=== PATIENT | female | born 1990 ===

== ENCOUNTER 2019-05-01 17:04 | Inpatient (IN) | payer MEDICAID ==
[2019-05-01] MEDS ORDERED: LACTATED RINGERS 1,000 ML ONE (18:08)
[2019-05-01 19:30] LABS: Hematocrit 35.5 % (30.3-42.9); Hemoglobin 11.9 gm/dl (10.1-14.3); Mean Corpuscular HGB Conc 34 % (30-34); Mean Corpuscular Volume 89 fl (79-97); Platelet Count 211 K/mm3 (140-440); Red Blood Count 4.01 M/mm3 (3.65-5.03); Red Cell Distribution Width 14.7 % (13.2-15.2)
--- NOTE | 2019-05-01 19:53 | History and Physical Report ---
<MARTIN ZAMORA - Last Filed: 05/02/19 20:11> History of Present Illness Date of admission: 05/01/19 17:04 Medications and Allergies Allergies Allergy/AdvReac Type Severity Reaction Status Date / Time No Known Allergies Allergy Verified 05/01/19 20:00 Home Medications Medication Instructions Recorded Confirmed Last Taken Type Docusate Sodium [Colace] 100 mg PO BID PRN #60 capsule 05/04/19 Unknown Rx Ferrous Sulfate [Feosol 325 MG tab] 325 mg PO BID #60 tablet 05/04/19 Unknown Rx Active Meds: Active Medications Acetaminophen (Tylenol) 650 mg PO Q4H PRN PRN Reason: Pain MILD(1-3)/Fever >100.5/PATEL Bisacodyl (Dulcolax) 10 mg [place] BID PRN PRN Reason: Constipation Diphenhydramine HCl (Benadryl) 25 mg PO Q6H PRN PRN Reason: Itching Diphtheria/Tetanus/Acell Pertussis (Boostrix) 0.5 ml IM .ONCE ONE Stop: 05/03/19 19:54 Ibuprofen (Ibuprofen) 600 mg PO Q6H MELL Magnesium Hydroxide (Milk Of Magnesia) 30 ml PO HS PRN PRN Reason: Constipation Measles/Mumps/Rubella Vaccine Live (M-M-R Ii Vaccine) 0.5 ml SUB-Q .ONCE ONE Stop: 05/03/19 19:54 Methylergonovine Maleate (Methergine) 0.2 mg PO Q8HR MELL Stop: 05/03/19 06:01 Multi-Ingredient Ointment (Lansinoh) 1 applic TP PRN PRN PRN Reason: Sore Nipples Ondansetron HCl (Zofran) 4 mg IV Q8H PRN PRN Reason: Nausea And Vomiting Promethazine HCl (Phenergan) 25 mg PO Q6H PRN PRN Reason: Nausea And Vomiting Sodium Chloride (Sodium Chloride Flush Syringe 10 Ml) 10 ml IV PRN NR Witch Ivana/Glycerin (Tucks Pad) 1 each TP PRN PRN PRN Reason: Hemorrhoid/cleansing/soothing - Vital Signs Vital signs: Vital Signs Pulse Pulse Ox 79 97 05/01/19 17:30 05/01/19 17:30 Temp Pulse Resp BP Pulse Ox 100.1 F H 138 H 20 99/58 100 09/26/19 17:45 05/02/19 17:45 05/02/19 17:45 05/02/19 17:45 05/02/19 17:45 Results Result Diagrams: 05/01/19 18:30 All other labs normal. GBS Positive HBsAg Screen Negative Negative *1 RPR Non Reactive Non Reactive *2 Rubella Antibodies, IgG 3.39 index Immune >0.99 *3 Non-immune <0.90 Equivocal 0.90 - 0.99 Immune >0.99 ABO Grouping A *4 Rh Factor Positive *5 Please note: Prior records for this patient's ABO / Rh type are not available for additional verification. Antibody Screen Negative Negative *6 WBC [H] 11.5 x10E3/uL 3.4-10.8 *7 RBC 3.84 x10E6/uL 3.77-5.28 *8 Hemoglobin [L] 10.0 g/dL 11.1-15.9 *9 Hematocrit [L] 31.1 % 34.0-46.6 *10 MCV 81 fL 79-97 *11 MCH [L] 26.0 pg 26.6-33.0 *12 MCHC 32.2 g/dL 31.5-35.7 *13 RDW [H] 19.2 % 12.3-15.4 *14 Platelets [H] 394 x10E3/uL 150-379 *15 Neutrophils 70 % Not Estab. *16 Lymphs 20 % Not Estab. *17 Monocytes 4 % Not Estab. *18 Eos 6 % Not Estab. *19 Basos 0 % Not Estab. *20 ! Immature Cells <No Reported Value> *21 Neutrophils (Absolute) [H] 8.1 x10E3/uL 1.4-7.0 *22 Lymphs (Absolute) 2.3 x10E3/uL 0.7-3.1 *23 Monocytes(Absolute) 0.5 x10E3/uL 0.1-0.9 *24 Eos (Absolute) [H] 0.7 x10E3/uL 0.0-0.4 *25 Baso (Absolute) 0.0 x10E3/uL 0.0-0.2 *26 ! Immature Granulocytes <No Reported Value> *27 ! Immature Grans (Abs) <No Reported Value> *28 ! NRBC <No Reported Value> *29 Hematology Comments: Note: *30 Manual differential was performed. Tests: (2) AFP Tetra ([id number]) ! Results Report *31 ! Test Results: *Screen Negative* *32 ! Gest. Age on Collection Date 16.4 WEEKS *33 ! Gestat. Age Based On Ultrasound *34 16.4 on 11/21/2018 ! Maternal [age] ANA 30[age]8 yr *35 ! Race Other *36 ! Weight 104 lbs *37 ! Insulin Dep Diabetes No *38 ! Multiple Gestation No *39 ! AFP Value 43.5 ng/mL *40 ! AFP MoM 1.00 *41 ! hCG Value 05462 mIU/mL *42 ! hCG MoM 0.71 *43 ! uE3 Value 1.53 ng/mL *44 ! uE3 MoM 1.52 *45 ! LIZABETH Value 228.24 pg/mL *46 ! LIZABETH MoM 1.06 *47 ! [place]BR [place] 1 [place] [address] *48 ! DSR (Second Trimester) 1 IN 6451 *49 ! DSR (By Age) 1 IN 630 *50 ! T18 Risk Not increased *51 ! T18 (By Age) 1:2456 *52 ! Interpretation NL42 *53 Interpretation: Screen Negative This result is screen negative for OSB, Down Syndrome and Trisomy 18. The AFP MoM and patient specific risks calculated are based on the gestational age and the clinical information provided. This test can identify up to 80% of open neural tube defects. Closed neural tube defects and some open defects may not be detected by this test. The combination of maternal age, AFP, hCG, uE3, and LIZABETH identifies 75-80% of Down Syndrome. The combination of maternal age, AFP, hCG and uE3 identifies 60% of Trisomy 18 pregnancies. The [place] [employer] recommends amniocentesis be offered to women age 35 and older. Recalculations are not recommended when gestational dating by LMP and ultrasound are within 10 days. ! Comments: [facility] *54 Katy Cheng, Ph.D., [facility] Principal Genetics [employer] Analyst References: Available Upon Request. Multiples Of Median Cutoffs Abbreviation Definitions For AFP Elevations IDD- Insulin Dep Diabetes Tyler 2.5 Black 2.8 OSBR- Open Spina Bifida IDD 2.0 Twins 4.5 Risk DSR Cutoff 1:270 DSR- Down Syndrome Risk T18 Cutoff 1:100 T18- Trisomy 18 Down Syndrome and Trisomy 18 screening are considered Investigational For further inquiries contact [facility] at [phone]. Tests: (3) HB Solu + Rflx [facility] ([id number]) Hemoglobin (Hgb) Solubility Negative Negative *55 Tests: (4) Panel [id number] ([id number]) HIV Screen 4th Generation wRfx Non Reactive Non Reactive *56 Tests: (5) Urine Culture, Routine ([id number]) Urine Culture, Routine Final report *57 Tests: (6) Result ([id number]) ! Result 1 No growth *58 Assessment and Plan Pt sent by [facility] for IOL due to oligo and IUGR GBS + All orders in EMR - Patient Problems (1) Group B streptococcal carriage complicating Onset Date: ~05/01/19 Status: Acute Plan to address problem: ampicillin per protocol for tx of +GBS <JANET VELOZ - Last Filed: 05/06/19 17:16> History of Present Illness Date of examination: 05/01/19 Date of admission: 05/01/19 17:04 History of present illness: Admission for induction per perinatalogist Menstrual History Regularity: regular Duration: 5 LMP: 07/29/2018 LMP reliability: definite LMP character: normal test type: urine test Date: 10/24/2018 BC at conception: none Planned ? yes EDC Calculations LMP: 05/05/2019 EDC Confirmation: 05/05/2019 Past History : 1 Term Births: 0 Premature Births: 0 Living Children: 0 Para: 0 Mult. Births: 0 Prev : 0 Prev. attempt? 0 Aborta: 0 Elect. Ab: 0 Spont. 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 of genital herpes: no Partner hx. of genital herpes: no Rash, Viral, or Febrile illness since last LMP? no Varicella/Chicken Pox Status: Immunized TB Risk: no Infection History Comments: HSV 1 Genetic History Congenital Heart Defect: Mom: no Dad: no Isreal Disease: Mom: no Dad: no Thalassemia Mom: no Dad: no Neural Tube Defect Mom: no Dad: no Down's Syndrome Mom: no Dad: no Rickey-Sachs Mom: no Dad: no Sickle Cell Disease/Trait Mom: no Dad: no Hemophilia Mom: no Dad: no Muscular Dystrophy Mom: no Dad: no Cystic Fibrosis Mom: no Dad: no Granite Chorea Mom: no Dad: no Mental Retardation Mom: no Dad: no Fragile X Mom: no Dad: no Other Genetic/Chromosomal Disorder Mom: no Dad: no Child w/other defect Mom: no Dad: no Enviromental Exposures Enviromental Exposures Reviewed Xray Exposure: no Medication, drug, or alcohol use since LMP: no Chemical/Other Exposure: no Exposure to Cat Liter: no Hx of Parvovirus (Fifth Disease): no Occupational Exposure to Children: none Current Allergies (reviewed today): No known allergies Past History Past Medical History: other (SEE HPI) Past Surgical History: other (SEE HPI) 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) Family/Genetic History: other (SEE HPI) Social history: , lives with family, full code, other (SEE HPI) - Obstetrical History Expected Date of Delivery: 05/05/19 Actual Gestation: 40 Week(s) 1 Day(s) : 1 Para: 0 Hx # Term Pregnancies: 0 Number of Pregnancies: 0 Spontaneous Abortions: 0 Induced : 0 Number of Living Children: 0 - Vital Signs Vital signs: Vital Signs Pulse Pulse Ox 79 97 05/01/19 17:30 05/01/19 17:30 Temp Pulse Resp BP Pulse Ox 97.8 F 86 14 120/74 98 05/01/19 17:32 05/01/19 19:44 05/01/19 17:32 05/01/19 18:53 05/01/19 19:44 Results Result Diagrams: 05/04/19 08:34 All other labs normal. Assessment and Plan - Patient Problems (1) Oligohydramnios in tyler in third trimester Status: Acute Plan to address problem: Diagnosis with ultrasound done at perinatologist office today. (2) 39 weeks gestation of Status: Acute (3) Intrauterine growth retardation Status: Acute Plan to address problem: Patient worsening growth retardation discussed with patient indication for induction with IUGR and oligohydramnios. Serous induction protocol explained and all questions answered (4) Group B streptococcal carriage complicating Onset Date: ~05/01/19 Status: Acute
[2019-05-01] MEDS ORDERED: ePHEDrine SULFATE 50 MG/1 ML INJ IV PRN (19:56)
[2019-05-01] MEDS ORDERED: DINOPROSTONE 10 MG VAG SUPP VG ONE (19:56)
[2019-05-01] MEDS ORDERED: BUTORPHANOL 2 MG/1 ML INJ IV PRN (19:56)
[2019-05-01] MEDS ORDERED: TERBUTALINE 1 MG/1 ML INJ SUB-Q PRN (19:56)
[2019-05-01] MEDS ORDERED: TERBUTALINE 1 MG/1 ML INJ IVP PRN (19:56)
[2019-05-01] MEDS ORDERED: LIDOCAINE (2%) 20 MG/1 ML VIAL 20 ML MDV INFILTRATI ONE (19:56)
[2019-05-01] MEDS ORDERED: PROMETHAZINE 25 MG TAB PO PRN (19:56)
[2019-05-01] MEDS ORDERED: OXYTOCIN 20 UNIT/1000ML DRIP 20 UNITS/1,000 ML BAG IV SCH (20:00)
[2019-05-01] MEDS ORDERED: AMPICILLIN/NS 2 GM/100 ML 2 GM/100 ML BAG IV ONE (23:33)
[2019-05-02] MEDS ORDERED: AMPICILLIN/NS 1 GM/50 ML 1 GM/50 ML BAG IV SCH (01:00)
[2019-05-02] MEDS: LACTATED RINGERS 1,000 ML IV SCH ×2 (02:01→10:57)
[2019-05-02] MEDS ORDERED: OXYTOCIN DRIP 30 UNITS/500 ML BAG IV SCH (10:00)
[2019-05-02] MEDS ORDERED: LIDOCAINE (2%) 20 MG/1 ML VIAL 20 ML MDV INFILTRATI ONE (14:02)
--- NOTE | 2019-05-02 14:26 | Progress Note ---
Assessment and Plan anticipate delivery pt declines epidural Subjective - Subjective Date of service: 05/02/19 (pt tolerating labor well) Principal diagnosis: IUP@39weeks IOL due to Oligo and IUGR Patient reports: loss of fluid, movement normal Objective - Vital Signs Vital Signs: Vital Signs - 12hr 05/02/19 05/02/19 05/02/19 02:22 02:27 02:33 Temperature Pulse Rate 90 100 H 96 H Respiratory Rate Blood Pressure O2 Sat by Pulse 95 95 94 Oximetry 05/02/19 05/02/19 05/02/19 02:38 02:42 02:43 Temperature Pulse Rate 79 92 H 91 H Respiratory Rate Blood Pressure 114/60 O2 Sat by Pulse 96 94 94 Oximetry 05/02/19 05/02/19 05/02/19 02:47 02:48 02:53 Temperature Pulse Rate 94 H 98 H 88 Respiratory Rate Blood Pressure O2 Sat by Pulse 94 94 95 Oximetry 05/02/19 05/02/19 05/02/19 02:58 03:03 03:08 Temperature Pulse Rate 88 94 H 82 Respiratory Rate Blood Pressure O2 Sat by Pulse 95 96 96 Oximetry 05/02/19 05/02/19 05/02/19 03:13 03:18 03:23 Temperature Pulse Rate 89 95 H 78 Respiratory Rate Blood Pressure O2 Sat by Pulse 97 96 97 Oximetry 05/02/19 05/02/19 05/02/19 03:28 03:33 03:38 Temperature Pulse Rate 87 75 77 Respiratory Rate Blood Pressure O2 Sat by Pulse 98 97 95 Oximetry 05/02/19 05/02/19 05/02/19 03:42 03:43 03:44 Temperature Pulse Rate 105 H 84 84 Respiratory Rate Blood Pressure 130/60 O2 Sat by Pulse 94 97 Oximetry 05/02/19 05/02/19 05/02/19 03:48 03:53 03:55 Temperature Pulse Rate 95 H 88 91 H Respiratory Rate Blood Pressure O2 Sat by Pulse 97 95 94 Oximetry 05/02/19 05/02/19 05/02/19 03:58 04:03 04:08 Temperature Pulse Rate 85 85 87 Respiratory Rate Blood Pressure O2 Sat by Pulse 95 95 96 Oximetry 05/02/19 05/02/19 05/02/19 04:13 04:18 04:23 Temperature Pulse Rate 88 97 H 79 Respiratory Rate Blood Pressure O2 Sat by Pulse 97 96 97 Oximetry 05/02/19 05/02/19 05/02/19 04:28 04:41 04:43 Temperature Pulse Rate 93 H 88 77 Respiratory Rate Blood Pressure 116/59 O2 Sat by Pulse 97 97 Oximetry 05/02/19 05/02/19 05/02/19 04:46 04:51 04:56 Temperature Pulse Rate 86 78 93 H Respiratory Rate Blood Pressure O2 Sat by Pulse 96 97 96 Oximetry 05/02/19 05/02/19 05/02/19 05:01 05:06 05:11 Temperature Pulse Rate 97 H 90 Respiratory Rate Blood Pressure O2 Sat by Pulse 97 98 96 Oximetry 05/02/19 05/02/19 05/02/19 05:16 05:21 05:26 Temperature Pulse Rate 77 81 85 Respiratory Rate Blood Pressure O2 Sat by Pulse 98 97 97 Oximetry 05/02/19 05/02/19 05/02/19 05:31 05:38 05:43 Temperature Pulse Rate 99 H 76 77 Respiratory Rate Blood Pressure O2 Sat by Pulse 98 98 98 Oximetry 05/02/19 05/02/19 05/02/19 05:44 05:48 05:53 Temperature Pulse Rate 83 76 80 Respiratory Rate Blood Pressure 122/60 O2 Sat by Pulse 98 97 Oximetry 05/02/19 05/02/19 05/02/19 05:58 06:03 06:23 Temperature Pulse Rate 80 87 79 Respiratory Rate Blood Pressure O2 Sat by Pulse 98 96 98 Oximetry 05/02/19 05/02/19 05/02/19 06:28 06:33 06:38 Temperature Pulse Rate 76 68 72 Respiratory Rate Blood Pressure O2 Sat by Pulse 97 92 96 Oximetry 05/02/19 05/02/19 05/02/19 06:43 06:48 08:00 Temperature 98.1 F Pulse Rate 86 87 67 Respiratory 16 Rate Blood Pressure 133/63 O2 Sat by Pulse 96 97 97 Oximetry 05/02/19 05/02/19 05/02/19 08:05 08:10 08:15 Temperature Pulse Rate 69 89 67 Respiratory Rate Blood Pressure O2 Sat by Pulse 97 97 97 Oximetry 05/02/19 05/02/19 05/02/19 08:20 08:25 08:30 Temperature Pulse Rate 72 68 89 Respiratory Rate Blood Pressure O2 Sat by Pulse 96 97 97 Oximetry 05/02/19 05/02/19 05/02/19 08:35 08:40 08:43 Temperature Pulse Rate 86 79 73 Respiratory Rate Blood Pressure O2 Sat by Pulse 96 97 88 Oximetry 05/02/19 05/02/19 05/02/19 08:45 08:50 08:55 Temperature Pulse Rate 68 66 70 Respiratory Rate Blood Pressure O2 Sat by Pulse 97 97 97 Oximetry 05/02/19 05/02/19 05/02/19 09:00 09:07 09:12 Temperature Pulse Rate 79 64 63 Respiratory Rate Blood Pressure O2 Sat by Pulse 97 97 96 Oximetry 05/02/19 05/02/19 05/02/19 09:17 09:22 09:27 Temperature Pulse Rate 68 76 66 Respiratory Rate Blood Pressure O2 Sat by Pulse 97 97 96 Oximetry 05/02/19 05/02/19 05/02/19 09:30 09:32 11:06 Temperature Pulse Rate 72 74 78 Respiratory Rate Blood Pressure 134/75 119/68 O2 Sat by Pulse 97 98 Oximetry 05/02/19 05/02/19 05/02/19 11:11 11:16 11:21 Temperature Pulse Rate 65 75 75 Respiratory Rate Blood Pressure O2 Sat by Pulse 98 95 96 Oximetry 05/02/19 05/02/19 05/02/19 11:26 11:31 11:36 Temperature Pulse Rate 66 71 89 Respiratory Rate Blood Pressure 104/68 O2 Sat by Pulse 98 99 99 Oximetry 05/02/19 05/02/19 05/02/19 11:41 11:46 11:51 Temperature Pulse Rate 65 70 Respiratory Rate Blood Pressure O2 Sat by Pulse 98 97 97 Oximetry 05/02/19 05/02/19 05/02/19 11:56 12:01 12:06 Temperature Pulse Rate 71 66 67 Respiratory Rate Blood Pressure O2 Sat by Pulse 98 97 98 Oximetry 05/02/19 05/02/19 05/02/19 12:08 12:11 12:16 Temperature Pulse Rate 64 70 68 Respiratory Rate Blood Pressure 132/81 O2 Sat by Pulse 99 99 Oximetry 05/02/19 05/02/19 05/02/19 12:19 12:21 12:23 Temperature 98.1 F Pulse Rate 77 68 Respiratory 17 Rate Blood Pressure O2 Sat by Pulse 94 99 Oximetry 05/02/19 05/02/19 05/02/19 12:26 12:30 12:31 Temperature Pulse Rate 86 69 73 Respiratory Rate Blood Pressure O2 Sat by Pulse 98 90 97 Oximetry 05/02/19 05/02/19 05/02/19 12:36 12:37 12:41 Temperature Pulse Rate 83 76 77 Respiratory Rate Blood Pressure 152/70 O2 Sat by Pulse 99 98 Oximetry 05/02/19 05/02/19 05/02/19 12:46 12:51 12:56 Temperature Pulse Rate 62 76 64 Respiratory Rate Blood Pressure O2 Sat by Pulse 98 98 98 Oximetry 05/02/19 05/02/19 05/02/19 13:01 13:06 13:07 Temperature Pulse Rate 62 66 65 Respiratory Rate Blood Pressure 122/58 O2 Sat by Pulse 97 97 Oximetry 05/02/19 05/02/19 05/02/19 13:11 13:16 13:21 Temperature Pulse Rate 71 82 82 Respiratory Rate Blood Pressure O2 Sat by Pulse 100 99 100 Oximetry 05/02/19 05/02/19 05/02/19 13:26 13:31 13:36 Temperature Pulse Rate 69 63 76 Respiratory Rate Blood Pressure 144/68 O2 Sat by Pulse 100 100 100 Oximetry 05/02/19 05/02/19 05/02/19 13:41 13:46 13:51 Temperature Pulse Rate 72 72 87 Respiratory Rate Blood Pressure O2 Sat by Pulse 100 100 99 Oximetry 05/02/19 05/02/19 13:56 14:01 Temperature Pulse Rate 69 70 Respiratory Rate Blood Pressure O2 Sat by Pulse 100 100 Oximetry - Exam Breasts: deferred Cardiovascular: Regular rate Lungs: Normal air movement Abdomen: Present: normal appearance, soft. Absent: distention, tenderness Uterus: Present: normal FHR: category 2 (variables) Uterine Contraction Monitor Mode: Internal Cervical Dilatation: 8 (ISE placed) Cervical Effacement Percentage: 100 station: 0 Uterine Contraction Pattern: Regular Uterine Tone Measurement Phase: Resting Uterine Contraction Intensity: Moderate Extremities: normal Deep Tendon Reflex Grade: Normal +2 - Labs Labs: Laboratory Results - last 24 hr 05/01/19 05/01/19 18:30 18:30 WBC 9.3 RBC 4.01 Hgb 11.9 Hct 35.5 MCV 89 MCH 30 MCHC 34 RDW 14.7 Plt Count 211 Blood Type A POSITIVE Antibody Screen Negative
[2019-05-02] MEDS ORDERED: METHYLERGONOVINE MALEATE 0.2 MG/ML VIAL IM ONE ×2 (15:08→15:09)
[2019-05-02] MEDS ORDERED: miSOPROStol 100 MCG TAB ONE (15:09)
[2019-05-02] MEDS ORDERED: miSOPROStol 100 MCG TAB PR ONE (15:10)
[2019-05-02] MEDS ORDERED: miSOPROStol 100 MCG TAB VG ONE (15:10)
[2019-05-02] MEDS ORDERED: miSOPROStol 200 MCG TAB PR ONE (15:11)
--- NOTE | 2019-05-02 15:28 | Procedure Note ---
OB Delivery Note - Delivery Date of Delivery: 05/02/19 Baby Nurse: MARTIN ZAMORA Estimated blood loss: 500cc (resolved PPH with massage, empty bladder, methergine, and Cytotec) - Vaginal Delivery presentation: vertex Delivery position: OA Intrapartum events: other(please specify) (oligo IUGR) Delivery induction: cervidil Delivery augmentation: pitocin Delivery monitor: external uterine, internal FHT Route of delivery: Delivery placenta: spontaneous Delivery cord: 3 umbilical vessels Episiotomy: none Delivery laceration: 1st degree (hemostatic no repair) Anesthesia: none Delivery comments: live born male over intact perineum Placed on mom's abdomen skin to skin. Placenta and membrane delivered complete and intact, 3 vessel cord. Pitocin IVFs Excessive bleeding noted as soon as the placenta delivered. uterine sweep, massage, straight cath 500+cc urine out, Methergine IM, Cytotec 800mcg MS placed. Explained situation to pt. 8/9, EBL 300, Wgt 5-15. 1st degree lac noted @ introitus no repair needed. Mom and baby remain LDR stable FF @ umb Loch mod. Will cont po Methergine PP - A at 1 minute: 8 at 5 minutes: 9 Infant Gender: Male (wgt5-15)
[2019-05-02] MEDS ORDERED: PROMETHAZINE 25 MG TAB PO PRN (19:53)
[2019-05-02] MEDS ORDERED: diphenhydrAMINE 25 MG CAP PO PRN (19:53)
[2019-05-02] MEDS ORDERED: WITCH HAZEL/ GLYCERIN PAD TP PRN (19:53)
[2019-05-02] MEDS ORDERED: ONDANSETRON 4 MG/2 ML INJ IV PRN (19:53)
[2019-05-02] MEDS ORDERED: MAGNESIUM HYDROXIDE (MOM) ORAL LIQD UDC PO PRN (19:53)
[2019-05-02] MEDS ORDERED: ACETAMINOPHEN 325 MG TAB PO PRN (19:53)
[2019-05-02] MEDS ORDERED: LANOLIN/ZINC/DIMETHICONE (LANSINOH) 7 GM TP PRN (19:53)
[2019-05-02] MEDS: IBUPROFEN 600 MG TAB PO SCH (20:26)
[2019-05-02] MEDS: METHYLERGONOVINE 0.2 MG TABLET PO SCH (20:26)
--- NOTE | 2019-05-02 21:23 | Event Note ---
Date: 05/02/19 (Temp 101.4 Pt c/o being dizzy) FF @ umb Lochia small Perineum slight swelling intact Temp 101.4 Motrin given. Pulse 100 taken by myself, BP 99/54. Pt sitting up in bed breast feeding. Room is very warm at pt's request. Pt c/o being very dizzy. Stat H&H ordered. Encouraged hydration. Stressed to not be up w/o assistance. methergine po administered as ordered.
[2019-05-03] MEDS: METHYLERGONOVINE 0.2 MG TABLET PO SCH ×2 (00:57→06:02)
[2019-05-03] MEDS: IBUPROFEN 600 MG TAB PO SCH ×4 (06:01→22:44)
[2019-05-03 07:37] LABS: Hematocrit 21.7 % (30.3-42.9); Hemoglobin 7.3 gm/dl (10.1-14.3)
--- NOTE | 2019-05-03 08:13 | Progress Note ---
Assessment and Plan pt resting w/o complaints. fundus firm, lochia scant, VSSAF (one time fever noted last night 101.4 @ 1935.) H&H dropped to 7.3/21.7, pt denies any current symptoms. Will continue to monitor closely and recheck H&H tomorrow. FE ordered TID. encouraged and increased activity. - Patient Problems (1) Spontaneous vaginal delivery Current Visit: Yes Status: Acute (2) Anemia associated with acute blood loss Current Visit: Yes Status: Acute Plan to address problem: FE TID repeat H&H in 24hrs (3) hemorrhage, delivered Current Visit: Yes Status: Acute Subjective - Subjective Date of service: 05/03/19 Principal diagnosis: day # 1s/p Patient reports: appetite normal, voiding normally, pain well controlled, ambulating normally, no dizzy ambulation, no nauseated : doing well, nursing well (breast and bottle feeding) Objective - Vital Signs Latest vital signs: Vital Signs Temp Pulse Resp BP Pulse Ox 05/03/19 07:01 18 05/03/19 06:01 18 05/03/19 00:18 98.2 F 87 20 114/54 100 05/02/19 23:00 98.5 F 05/02/19 21:26 18 05/02/19 20:44 99.8 F H 99 H 20 101/59 99 05/02/19 20:26 18 05/02/19 19:53 101.4 F H 05/02/19 17:45 100.1 F H 138 H 20 99/58 100 05/02/19 16:34 99.3 F 05/02/19 15:47 142 H 133/63 05/02/19 15:32 120/69 05/02/19 15:17 126 H 111/63 05/02/19 15:02 98 H 111/72 05/02/19 14:48 101 H 110/71 05/02/19 14:36 89 100 05/02/19 14:31 68 99 05/02/19 14:26 71 99 05/02/19 14:25 98.4 F 16 05/02/19 14:21 74 100 05/02/19 14:16 71 100 05/02/19 14:11 102 H 100 05/02/19 14:07 66 140/82 05/02/19 14:06 73 98 05/02/19 14:01 70 100 05/02/19 13:56 69 100 05/02/19 13:51 87 99 05/02/19 13:46 72 100 05/02/19 13:41 72 100 05/02/19 13:36 76 144/68 100 05/02/19 13:31 63 100 05/02/19 13:26 69 100 05/02/19 13:21 82 100 05/02/19 13:16 82 99 05/02/19 13:11 71 100 05/02/19 13:07 65 122/58 05/02/19 13:06 66 97 05/02/19 13:01 62 97 05/02/19 12:56 64 98 05/02/19 12:51 76 98 05/02/19 12:46 62 98 05/02/19 12:41 77 98 05/02/19 12:37 76 152/70 05/02/19 12:36 83 99 05/02/19 12:31 73 97 05/02/19 12:30 69 90 05/02/19 12:26 86 98 05/02/19 12:23 98.1 F 17 05/02/19 12:21 68 99 05/02/19 12:19 77 94 05/02/19 12:16 68 99 05/02/19 12:11 70 99 05/02/19 12:08 64 132/81 05/02/19 12:06 67 98 05/02/19 12:01 66 97 05/02/19 11:56 71 98 05/02/19 11:51 70 97 05/02/19 11:46 65 97 05/02/19 11:41 98 05/02/19 11:36 89 104/68 99 05/02/19 11:31 71 99 05/02/19 11:26 66 98 05/02/19 11:21 75 96 05/02/19 11:16 75 95 05/02/19 11:11 65 98 05/02/19 11:06 78 119/68 98 05/02/19 09:32 74 97 05/02/19 09:30 72 134/75 05/02/19 09:27 66 96 05/02/19 09:22 76 97 05/02/19 09:17 68 97 05/02/19 09:12 63 96 05/02/19 09:07 64 97 05/02/19 09:00 79 97 05/02/19 08:55 70 97 05/02/19 08:50 66 97 05/02/19 08:45 68 97 05/02/19 08:43 73 88 05/02/19 08:40 79 97 05/02/19 08:35 86 96 05/02/19 08:30 89 97 05/02/19 08:25 68 97 05/02/19 08:20 72 96 05/02/19 08:15 67 97 05/02/19 08:10 89 97 Intake and Output 05/02/19 05/03/19 05/03/19 23:59 07:59 15:59 Intake Total 600 Balance 600 Intake: Oral 600 Other: Total, Intake Amount 240 # Voids Indwelling Catheter 1 1 - Exam Breasts: Present: normal, Cardiovascular: Present: Regular rate Lungs: Present: Clear to auscultation, Normal air movement Abdomen: Present: normal appearance, soft Vulva: both: normal Uterus: Present: normal, firm, fundal height at umbilicus Extremities: Present: normal Deep Tendon Reflex Grade: Normal +2 - Labs Labs: Abnormal lab results 05/03/19 Range/Units 06:57 Hgb 7.3 L D (10.1-14.3) gm/dl Hct 21.7 L D (30.3-42.9) %
[2019-05-03] MEDS: FERROUS SULFATE 325 MG TAB PO SCH ×2 (16:00→22:44)
[2019-05-03] MEDS ORDERED: MEASLES, MUMPS & RUBELLA 12,500 UNIT/0.5 ML VACCINE SUB-Q ONE (19:53)
[2019-05-03] MEDS ORDERED: TETANUS,DIPH,PERTUSS(ACELL) VACCINE 0.5 ML SYRINGE IM ONE (19:53)
[2019-05-04] MEDS: IBUPROFEN 600 MG TAB PO SCH ×3 (02:41→14:25)
--- NOTE | 2019-05-04 08:53 | Discharge Summary ---
Providers - Providers Date of Admission: 05/01/19 17:04 Date of discharge: 05/04/19 Attending physician: JANET VELOZ Primary care physician: JANET VELOZ Hospitalization Reason for admission: IOL oligo/IUGR Condition: Good Procedures: Hospital course: complicated byPostpartum hemorrhage, stable at current-patient is asymptomatic, uncomplicated course Disposition: DC-01 TO HOME OR SELFCARE Core Measure Documentation - Palliative Care Palliative Care/ Comfort Measures: Not Applicable - Core Measures Any of the following diagnoses?: none Exam - Constitutional Vitals: Temp Pulse Resp BP Pulse Ox 97.8 F 86 16 100/59 98 05/04/19 01:32 05/04/19 01:32 05/04/19 01:32 05/04/19 01:32 05/04/19 01:32 General appearance: Present: no acute distress, well-nourished - EENT Eyes: Present: PERRL ENT: hearing intact, clear oral mucosa - Neck Neck: Present: supple, normal ROM - Respiratory Respiratory effort: normal Respiratory: bilateral: CTA - Cardiovascular Heart Sounds: Present: S1 & S2. Absent: rub, click - Extremities Extremities: pulses symmetrical, No edema Peripheral Pulses: within normal limits - Abdominal General gastrointestinal: Present: soft, non-tender, non-distended, normal bowel sounds Female genitourinary: Present: normal - Integumentary Integumentary: Present: clear, warm, dry - Musculoskeletal Musculoskeletal: gait normal, strength equal bilaterally - Psychiatric Psychiatric: appropriate mood/affect, intact judgment & insight - Neurologic Neurologic: CNII-XII intact, moves all extremities - Additional findings Additional findings: FF, ML, U/2. Vaginal bleeding is small, patient denies any heavy bleeding or clots. She denies any dizziness or feeling faint with ambulation or position changes. Reports pain is well controlled. VSSAF> Desires discharge home today. Plan Activity: advance as tolerated Diet: regular Care Plan Goals: Call your doctor immediately for: * Fever > 100.5 * Heavy vaginal bleeding ( >1 pad per hour) * Severe persistent headache * Shortness of breath * Reddened, hot, painful area to leg or breast CALL OFFICE TO SCHEDULE FOLLOW-UP APPOINTMENT. Follow up with: JANET VELOZ MD [Primary Care Provider] - 6 Weeks (Congratulations! Please call [phone] to schedule your appointment in 6 weeks. Call with any questions or concerns. ) Forms: [facility] Discharge Summary Prescriptions: Docusate Sodium [Colace] 100 mg PO BID PRN #60 capsule PRN Reason: Constipation Ferrous Sulfate [Feosol 325 MG tab] 325 mg PO BID #60 tablet
[2019-05-04 09:34] LABS: Hematocrit 23.6 % (30.3-42.9); Hemoglobin 7.6 gm/dl (10.1-14.3)
[2019-05-04] MEDS: FERROUS SULFATE 325 MG TAB PO SCH ×2 (09:55→14:22)
[2019-05-04] MEDS ORDERED: DOCUSATE SODIUM 100 MG CAP PO SCH (10:00)
[2019-05-04 15:02] VITALS: BP 103/55
== END 2019-05-04 16:45 | disposition home or self-care (01) | DRG 774 ==
LOC: LD 17:04 → OB 05-02 18:06
PROVIDERS: ADMIT Obstetrics & Gynecology; ATTEND Obstetrics & Gynecology
PROC: 3E0P7VZ Introduction of Hormone into Female Reproductive, Via Natural or Artificial Opening (ICD-10-PCS; principal; 2019-05-02)
PROC: 10E0XZZ Delivery of Products of Conception, External Approach (ICD-10-PCS; 2019-05-02)
PROC: 3E0234Z Introduction of Serum, Toxoid and Vaccine into Muscle, Percutaneous Approach (ICD-10-PCS; 2019-05-03)
DX: O36.5930 Maternal care for other known or suspected poor fetal growth, third trimester, not applicable or unspecified (principal); O72.1 Other immediate postpartum hemorrhage; O41.03X0 Oligohydramnios, third trimester, not applicable or unspecified; O99.824 Streptococcus B carrier state complicating childbirth; Z37.0 Single live birth; O70.0 First degree perineal laceration during delivery; O90.81 Anemia of the puerperium; D62 Acute posthemorrhagic anemia; Z23 Encounter for immunization; Z3A.39 39 weeks gestation of pregnancy
CPT/HCPCS: 36415; 59200; 85014; 85018; 85027; 86592; 86850; 86900; 86901; 88307; G0378; J0290; J2210; J2590; J7120; Q0169